=== PATIENT | male | born 1995 | race Caucasian/White ===

== ENCOUNTER 2024-12-18 09:03 | Outpatient (CLI) | payer OTHER, SELFPAY ==
--- NOTE | ~2024-12-18 | MR_ITS ---
MRI of the right knee Clinical history: Pain, effusion Technique: Coronal proton density and proton density-weighted images, sagittal proton-density and T2 fat-sat images, and axial proton-density fat-saturated images were acquired. Findings: There is acute complete tear of the proximal to midportion of the ACL. Posterior cruciate l igament is intact. Possible tearing of the deep meniscofemoral component of the MCL. Lateral collater al ligament complex is intact. Popliteus tendon is intact. There is a vertical/oblique tear of the posterior horn of the lateral meniscus. No medial meniscal te ar seen. There are transchondral impaction injuries at the central aspect of the lateral femoral condyle and p osterolateral tibial plateau, compatible with recent pivot shift injury. There is additional contusio n at the posterior medial tibial plateau. There is focal contusion at the medial femoral condyle as w ell. There is minimal contusion at the fibular head. Extensor mechanism is intact. Moderate to large joint effusion present. No Arellano's cyst. Impression: Acute complete ACL tear. Transchondral impaction injuries at the central aspect of the lateral femoral condyle and posterolate ral tibial plateau, compatible with recent pivot shift injury. Additional contusions at the posterior medial tibial plateau, medial femoral condyle, and fibular head. Possible tearing of the deep meniscofemoral component of the MCL. Vertical/oblique tear of the posterior horn of the lateral meniscus. Moderate to large joint effusion. Mild edematous change at the posterolateral corner without definite high-grade posterolateral corner injury. Reviewed, dictated and finalized at location . Impression: Acute complete ACL tear. Transchondral impaction injuries at the central aspect of the lateral femoral c ondyle and posterolateral tibial plateau, compatible with recent pivot shift in [facility]. Additional contusions at the posterior medial tibial plateau, medial femo ral condyle, and fibular head. Possible tearing of the deep meniscofemoral component of the MCL. Vertical/oblique tear of the posterior horn of the lateral meniscus. Moderate to large joint effusion. Mild edematous change at the posterolateral corner without definite high-grade posterolateral corner injury.
== END 2024-12-18 09:04 | disposition home or self-care (01) ==
LOC: GOSHIMG 09:04
PROVIDERS: PCP Physician Assistant; Visit Provider Physician Assistant
DX: M25.561 Pain in right knee (principal); M25.461 Effusion, right knee; S83.511A Sprain of anterior cruciate ligament of right knee, initial encounter; S83.281A Other tear of lateral meniscus, current injury, right knee, initial encounter
CPT/HCPCS: 73721